=== PATIENT | male | born 1960 | race Caucasian/White ===

== ENCOUNTER → 2018-06-20 | Outpatient (CLI) | payer OTHER ==
[~2018-06-20] MED LIST: AMBIEN 10 MG TA10 MG PO; CHANTIX1 MG PO; DESYREL150 MG PO; DOXYCYCLINE 10100 M1 PO; FLOMAX PO; FLORINEF ACETA0.1 MG PO; GLUCOPHAGE500 MG PO; LEXAPRO20 MG PO; MS CONTIN 100100 MG PO; NAPROSYN500 MG PO; NEURONTIN800 MG PO; NIASPAN 500 MG500 M1 PO; TRICOR145 MG PO; URECHOLINE 25 M25 M1 PO; WELLBUTRIN XL300 M1 PO; ZOCOR40 MG PO
== END ==
LOC: HYPER 06-02 14:31
DX: T81.31XA Disruption of external operation (surgical) wound, not elsewhere classified, initial encounter (principal); E11.622 Type 2 diabetes mellitus with other skin ulcer; L89.314 Pressure ulcer of right buttock, stage 4; L98.411 Non-pressure chronic ulcer of buttock limited to breakdown of skin; E78.5 Hyperlipidemia, unspecified; E78.00 Pure hypercholesterolemia, unspecified; G89.29 Other chronic pain; I10 Essential (primary) hypertension; F33.8 Other recurrent depressive disorders; Z79.84 Long term (current) use of oral hypoglycemic drugs; Z87.891 Personal history of nicotine dependence; Z89.611 Acquired absence of right leg above knee; Y92.89 Other specified places as the place of occurrence of the external cause; Y83.8 Other surgical procedures as the cause of abnormal reaction of the patient, or of later complication, without mention of misadventure at the time of the procedure

== ENCOUNTER → 2018-07-11 | Outpatient (CLI) | payer OTHER | LOC: HYPER 07:01 | DX: T81.31XD Disruption of external operation (surgical) wound, not elsewhere classified, subsequent encounter (principal); E11.622 Type 2 diabetes mellitus with other skin ulcer; L89.314 Pressure ulcer of right buttock, stage 4; L98.416 Non-pressure chronic ulcer of buttock with bone involvement without evidence of necrosis; E78.5 Hyperlipidemia, unspecified; E78.00 Pure hypercholesterolemia, unspecified; G89.29 Other chronic pain; I10 Essential (primary) hypertension; F33.8 Other recurrent depressive disorders; Z79.84 Long term (current) use of oral hypoglycemic drugs; Z87.891 Personal history of nicotine dependence; Z89.612 Acquired absence of left leg above knee; Y83.8 Other surgical procedures as the cause of abnormal reaction of the patient, or of later complication, without mention of misadventure at the time of the procedure ==